=== PATIENT | male | born 1945 | race Caucasian/White ===

== ENCOUNTER → 2019-04-10 | Outpatient (CLI) | payer OTHER, BC ==
--- NOTE | 2019-04-10 15:33 | 2DMMODE ---
[facility] [place] [address] 2 D/M-MODE ECHOCARDIOGRAM Name: SHAYLACHO Phong Room #: [facility] [place]#: [id number] Admission: 04/10/19 Attend Phys: Luis F Chamberlain Discharge: Date of : 43 Report #: [id number] THIS REPORT FOR: cc: Tico Lindsey MD, Christopher B. MD Lundgren, Craig H. MD [facility] ~ APPROVED REPORT Study performed: 04/10/2019 13:23:06 EXAM: Comprehensive 2D, Doppler, and color-flow Echocardiogram Patient Location: Out-Patient Room #: Echo lab 2 Status: routine BSA: 2.02 HR: 76 bpm BP: 132/78 mmHg Rhythm: NSR Other Information Study Quality: Good Indications Pre-Chemo 2D Dimensions RVDd: 35.29 mm IVSd: 10.67 (7-11mm) LVOT Diam: 23.02 (18-24mm) LVDd: 47.07 mm PWd: 11.44 (7-11mm) Ascending Ao: 29.51 (22-36mm) LVDs: 30.07 (25-40mm) Aortic Root: 34.66 mm IVC: 17.00 mm Volumes Left Atrial Volume (Systole) Single Plane 4CH: 53.93 mL Single Plane 2CH: 24.50 mL LA ESV Index: 21.00 mL/m2 Aortic Valve AoV Peak Mahad.: 1.28 m/s AO Peak Gr.: 6.57 mmHg LVOT Max P.12 mmHg LVOT Max V: 1.24 m/s DONNA Vmax: 4.02 cm2 [facility] [address] [place] [address] 2 D/M-MODE ECHOCARDIOGRAM Name: LACHO DAY Room #: REG CL [facility]#: [id number] Admission: 04/10/19 Attend Phys: Luis F Dinh Discharge: Date of : 43 Report #: [id number] Mitral Valve E/A Ratio: 1.1 MV Decel. Time: 207.93 ms MV E Max Mahad.: 0.67 m/s MV A Mahad.: 0.61 m/s MV PHT: 60.30 ms IVRT: 96.89 ms Pulmonary Valve PV Peak Mahad.: 1.20 m/s PV Peak Gr.: 5.75 mmHg Pulmonary Vein P Vein S: 0.46 m/s P Vein A: 0.25 m/s P Vein D: 0.34 m/s P Vein A Dur.: 110.7 msec P Vein S/D Ratio: 1.35 Tricuspid Valve TR Peak Mahad.: 2.49 m/s TR Peak Gr.: 24.77 mmHg PA Pressure: 30.00 mmHg Left Ventricle The left ventricle is normal size. There is normal LV segmental wall motion. There is normal left ventricular wall thickness. Left ventricular systolic function is normal. The left ventricular ejection fraction is within the normal range. LVEF is 55-60%. The left ventricular diastolic function is normal. Right Ventricle The right ventricle is normal size. The right ventricular systolic function is normal. Atria The left atrium size is normal. Small PFO is noted by color flow doppler. The right atrium size is normal. Aortic Valve The aortic valve is normal in structure. Trace aortic regurgitation There is no aortic valvular stenosis. Mitral Valve The mitral valve is normal in structure. There is no mitral valve regurgitation noted. No evidence of mitral valve stenosis. Tricuspid Valve The tricuspid valve is normal in structure. There is trace tricuspid [facility] [address] [place] [address] 2 D/M-MODE ECHOCARDIOGRAM Name: LACHO DAY Room #: REG [facility]#: [id number] Admission: 04/10/19 Attend Phys: Luis F Dinh Discharge: Date of : 43 Report #: [id number] regurgitation. Estimated PAP 30 mmHg. There is no pulmonary hypertension. Pulmonic Valve The pulmonary valve is normal in structure. There is no pulmonic valvular regurgitation. Great Vessels The aortic root is normal in size. IVC is normal in size and collapses >50% with inspiration. Pericardium There is no pericardial effusion. <Conclusion> Left ventricular systolic function is normal. There is normal LV segmental wall motion. LVEF is 55-60%. Normalf diastolic function Small PFO is noted by color flow doppler. The aortic valve is normal in structure. Trace aortic regurgitation, no stenosis The mitral valve is normal in structure. No mitral valve regurgitation. There is trace tricuspid regurgitation. Estimated pulmonary artery pressure of 30 mmHg. There is no pericardial effusion. <ELECTRONICALLY SIGNED> By: Crescencio Morales MD, FACC 04/10/19 [phone] Crescencio Morales MD, FACC /INF
--- NOTE | 2019-04-17 03:12 | PFR/MVV ---
[facility] [place] [address] PULMONARY FUNCTION MVV/REPORT Name: LACHO DAY Room #: REG [facility]#: [id number] Admission: 04/10/19 Attend Phys: Luis F Snell MD Discharge: Date of : 43 Report #: [id number] THIS REPORT FOR: //name// COPIES FOR: AGE: 73 SEX/RACE: M/C >> SPIROMETRY: (BTPS) Height: 68 in cm Weight: 195 lbs kg Exam Date: 04/10/19 PRE-RX POST-RX PRED BEST %PRED BEST %PRED %CHG FVC LITERS . 3.97 . 3.96 . 100 . 4.02 . 101 . 2 FEV1 LITERS . 2.63 . 3.08 . 117 . 3.31 . 126 . 7 FEV1/FVC % . 68 . 78 . 114 . 82 . 121 . 6 [id number]% L/Sec . 2.38 . 3.00 . 126 . 3.79 . 159 . 26 PEF L/SEC . 7.65 . 5.58 . 73 . 7.07 . 92 . 27 FEF50/FIF50 UNITLESS . <1.00 . . . . . MVV L/Min . 116 . 76 . 66 f 1/Min . . 110 . >> LUNG VOLUMES: (BTPS) PRE-RX POST-RX PRED AVG %PRED AVG %PRED %CHG VC Liters . 3.97 . 3.96 . 100 . . . TLC Liters . 5.97 . 15.77 . 264 . . . RV Liters . 2.47 . 11.82 . 478 . . . RV/TLC % . 42 . 75 . 178 . . . FRC [address] Liters . 3.27 . 13.85 . 423 . . . FRC N2 Liters . 3.27 . . . . . ERV Liters . 1.37 . 2.03 . 148 . . . IC Liters . 2.74 . 2.19 . 80 . . . >> DIFFUSION: DLCO ml/Min/mmHg . 20.6 . 22.2 . 108 . . . DL Luis Manuel ml/Min/mmHg . 20.6 . 22.2 . 108 . . . DLCO/VA ml/Min/mmHg . 3.49 . 4.84 . 139 . . . VA Liters . . 4.59 . . . . [facility] [address] [place] [address] PULMONARY FUNCTION MVV/REPORT Name: LACHO DAY Room #: REG [facility]#: [id number] Admission: 04/10/19 Attend Phys: Luis F Snell MD Discharge: Date of : 43 Report #: [id number] COMMENTS: COMMENTS: >> RESISTANCE: PRE-RX PRED AVG %PRED Raw Total cmH20/L/Sec . . 0.42 . Raw Insp cmH20/L/Sec . . 0.34 . Raw Exp cmH20/L/Sec . . 0.53 . Raw cmH20/L/Sec . 1.40 . 0.15 . 11 Gaw L/Sec/cmH20 . 0.785 . 6.579 . 838 sRaw cmH20 Sec . 4.60 . 2.11 . 46 sGaw l/cmH20 Sec . 0.218 . 0.474 . 218 Vtq Liters . . 13.88 . # = OUTSIDE 95% CONFIDENCE INTERVAL CALIBRATION: PRED: 3.00 ACTUAL: EXP 3.[address] [facility]-OL10-06 [facility]-05 N-1804-4 >> INTERPRETATION/IMPRESSION: CC: Tico Snell DATE OF SERVICE: 04/16/2019 PULMONARY FUNCTION TESTS SPIROMETRY: FEV1 is 3.08 liters (117%), FVC is 3.96 liters (100%), FEV1/FVC ratio 78%. Post-bronchodilator therapy with no significant response. LUNG VOLUMES: Total lung capacity is 15.77 (264%). RV is 11.82 liters (478 liters). Diffusing capacity is 108%. IMPRESSION: Pulmonary function studies are normal. Diffusing capacity is normal. Lung volumes are increased. <ELECTRONICALLY SIGNED> By: Ceasar Church MD 04/17/19 0312 Ceasar Church MD /nt
== END ==
LOC: PUL 10:29
DX: C81.11 Nodular sclerosis Hodgkin lymphoma, lymph nodes of head, face, and neck (principal); I51.7 Cardiomegaly; J43.9 Emphysema, unspecified; Z91.89 Other specified personal risk factors, not elsewhere classified; Z79.899 Other long term (current) drug therapy
CPT/HCPCS: 27000